=== PATIENT | female | born 1950 | race Caucasian/White ===

== ENCOUNTER 2021-10-17 12:15 | Emergency (ER) | payer MEDICARE, MEDICAID ==
[~2021-10-17] VITALS: Ht 154.9 cm; Wt 104.5 kg
[2021-10-17] MEDS ORDERED: pantoprazole 40MG/NS 100ML BAG 100 ML IV STA (14:53)
[2021-10-17] MEDS ORDERED: LIDOcaine Viscous 15ml cup MM ONE (14:55)
[2021-10-17] MEDS ORDERED: morphine 2 MG/ML inj. syringe IV PRN (14:55)
[2021-10-17] MEDS ORDERED: ondansetron/PF 4mg/2ml inj IV ONE (14:55)
[2021-10-17] MEDS ORDERED: mag hydrox/Alum hydrox/simeth 30ml oral suspension PO ONE (14:55)
[2021-10-17] MEDS ORDERED: normal saline 1000ML IV soln IVB ONE (14:55)
[2021-10-17 15:26] LABS: BASOPHILS % (AUTO) 0.2 % (0-1); EOSINOPHILS # (AUTO) 0.2 X10'3 (0-0.9); EOSINOPHILS % (AUTO) 1.7 % (0-6); HEMATOCRIT 42.6 % (35.0-45.0); HEMOGLOBIN 13.6 g/dl (12.0-16.0); LYMPHOCYTES # (AUTO) 2.4 X10'3 (1.1-4.8); LYMPHOCYTES % (AUTO) 24.9 % (21-51); MEAN CORPUSCULAR HEMOGLOBIN 30.5 PG (27.0-31.0); MEAN CORPUSCULAR HGB CONC 31.9 g/dL (33.0-36.5); MEAN CORPUSCULAR VOLUME 95.7 FL (78-98); MEAN PLATELET VOLUME 7.6 FL (7.4-10.4); MONOCYTES # (AUTO) 0.6 X10'3 (0-0.9); MONOCYTES % (AUTO) 6.4 % (2-12); NEUTROPHILS # (AUTO) 6.3 X10'3 (1.8-7.7); NEUTROPHILS % (AUTO) 66.8 % (42-75); PLATELET COUNT 207 X10'3 (140-440); RED BLOOD COUNT 4.45 X10'6 (4.20-5.60); RED CELL DISTRIBUTION WIDTH 14.6 % (11.5-14.5); WHITE BLOOD COUNT 9.5 X10'3 (4.5-11.0)
[2021-10-17] MEDS: diatr meglu/diatrizoate 30ml oral sol.-(3 dose) bottle PO SCH ×2 (15:49→16:54)
[2021-10-17 16:06] LABS: ALANINE AMINOTRANSFERASE 18 U/L (12-78); ALBUMIN 3.4 G/DL (3.4-5.0); ALBUMIN/GLOBULIN RATIO 1.3 (1.1-1.5); ALKALINE PHOSPHATASE 65 IU/L (46-116); ANION GAP 9 (8-16); ASPARTATE AMINO TRANSFERASE 21 U/L (10-37); BILIRUBIN,TOTAL 0.5 MG/DL (0.1-1.0); BLOOD UREA NITROGEN 20 MG/DL (7-18); BUN/CREATININE RATIO 17.5 (6.6-38.0); CALCIUM 8.5 MG/DL (8.5-10.1); CHLORIDE 109 MMOL/L (99-107); CREATININE 1.14 MG/DL (0.40-0.90); GLUCOSE 99 MG/DL (70-104); LIPASE 68 U/L (73-393); POTASSIUM 3.8 MMOL/L (3.5-5.1); SODIUM 147 MMOL/L (135-145); TOTAL CARBON DIOXIDE 29.5 MMOL/L (24-32); TOTAL PROTEIN 6.1 G/DL (6.4-8.2); eGFR 47 ML/MIN
[2021-10-17] MEDS ORDERED: MESSAGE TO NURSING PO NR (18:05)
[2021-10-17 18:38] LABS: CLARITY,URINE CLOUDY (Clear); COLOR,URINE YELLOW (Yellow); GLUCOSE, URINE NEGATIVE (Neg); KETONES,URINE >=80 mg/dl (Neg); LEUKOCYTE ESTERASE ,URINE NEGATIVE (Neg); NITRITES, URINE POSITIVE (Neg); OCCULT BLOOD,URINE TRACE-INTACT (Neg); PH,URINE 6.5 (4.8-8.0); PROTEIN,URINE TRACE mg/dl (Neg); UROBILINOGEN,URINE 0.2 E.U/dL (0.2-1.0)
[2021-10-17 18:54] LABS: UA COLLECTION TYPE NON-SPECIFIED
[2021-10-17 18:58] LABS: AMORPHOUS PHOSPHATES 2+; BACTERIA,URINE 2+ /HPF (Neg); COARSE GRANULAR CAST 0-3 /LPF (NEGATIVE); MUCUS STRANDS MODERATE /LPF (Neg); RBC,URINE 0-2 /HPF (0-2); SQUAMOUS EPITHELIAL CELL,UR FEW /LPF (FEW); TRANSITIONAL EPI CELLS,URINE FEW /HPF
[2021-10-17] MEDS ORDERED: ACET650T58 PO (19:02)
[2021-10-17] MEDS ORDERED: morphine 2 MG/ML inj. syringe IV ONE (19:20)
[2021-10-17 19:49] VITALS: BP 141/87
--- NOTE | 2021-10-21 10:55 | NUR ---
PT CALLED REGARDING LAB RESULTS FOR VISIT ON 10/17, NO ANSWER, MSG LEFT TO CALL BACK.
== END 2021-10-17 19:50 | disposition home or self-care (01) ==
LOC: ER 12:15
DX: N83.9 Noninflammatory disorder of ovary, fallopian tube and broad ligament, unspecified (principal); E86.0 Dehydration; Z88.8 Allergy status to other drugs, medicaments and biological substances; Z88.5 Allergy status to narcotic agent; Z79.899 Other long term (current) drug therapy
CPT/HCPCS: 36415; 74177; 80053; 81001; 83690; 85025; 86885; 86900; 86901; 87077; 87088; 87186; 96365; 96375; 96376; 99284; C9113; J2270; J2405; J7030; Q9963

== ENCOUNTER 2021-10-19 12:26 | Emergency (ER) | payer MEDICARE, MEDICAID ==
[~2021-10-19] VITALS: Ht 167.6 cm; Wt 106.8 kg
[~2021-10-19 12:26] MED LIST: ACET650T58 PO
[2021-10-19 14:06] LABS: BASOPHILS % (AUTO) 0.2 % (0-1); EOSINOPHILS # (AUTO) 0.2 X10'3 (0-0.9); EOSINOPHILS % (AUTO) 2.6 % (0-6); HEMATOCRIT 37.6 % (35.0-45.0); HEMOGLOBIN 12.5 g/dl (12.0-16.0); LYMPHOCYTES # (AUTO) 0.7 X10'3 (1.1-4.8); LYMPHOCYTES % (AUTO) 9.7 % (21-51); MEAN CORPUSCULAR HEMOGLOBIN 30.8 PG (27.0-31.0); MEAN CORPUSCULAR HGB CONC 33.2 g/dL (33.0-36.5); MEAN CORPUSCULAR VOLUME 92.6 FL (78-98); MEAN PLATELET VOLUME 7.8 FL (7.4-10.4); MONOCYTES # (AUTO) 0.5 X10'3 (0-0.9); MONOCYTES % (AUTO) 6.7 % (2-12); NEUTROPHILS # (AUTO) 6.2 X10'3 (1.8-7.7); NEUTROPHILS % (AUTO) 80.8 % (42-75); PLATELET COUNT 184 X10'3 (140-440); RED BLOOD COUNT 4.06 X10'6 (4.20-5.60); RED CELL DISTRIBUTION WIDTH 13.8 % (11.5-14.5); WHITE BLOOD COUNT 7.7 X10'3 (4.5-11.0)
--- NOTE | 2021-10-19 14:28 | NUR ---
Pt was straight cath for urine collection.
[2021-10-19 14:31] LABS: ALANINE AMINOTRANSFERASE 97 U/L (12-78); ALBUMIN 2.9 G/DL (3.4-5.0); ALKALINE PHOSPHATASE 100 IU/L (46-116); ANION GAP 9 (8-16); ASPARTATE AMINO TRANSFERASE 70 U/L (10-37); BILIRUBIN,TOTAL 0.6 MG/DL (0.1-1.0); BLOOD UREA NITROGEN 28 MG/DL (7-18); BUN/CREATININE RATIO 16.1 (6.6-38.0); CALCIUM 8.7 MG/DL (8.5-10.1); CHLORIDE 108 MMOL/L (99-107); CREATININE 1.74 MG/DL (0.40-0.90); GLUCOSE 116 MG/DL (70-104); POTASSIUM 3.6 MMOL/L (3.5-5.1); SODIUM 144 MMOL/L (135-145); TOTAL CARBON DIOXIDE 27.1 MMOL/L (24-32); TOTAL PROTEIN 5.8 G/DL (6.4-8.2); eGFR 29 ML/MIN
[2021-10-19] MEDS ORDERED: CefTRIAXone 2gm/D5W 50ml BAG 50 ML IV ONE (14:40)
[2021-10-19] MEDS ORDERED: normal saline 1000ML IV soln IV ONE (14:40)
[2021-10-19 14:44] LABS: CLARITY,URINE SLIGHTLY CLOUDY (Clear); COLOR,URINE YELLOW (Yellow); GLUCOSE, URINE NEGATIVE (Neg); KETONES,URINE TRACE mg/dl (Neg); LEUKOCYTE ESTERASE ,URINE TRACE (Neg); NITRITES, URINE POSITIVE (Neg); OCCULT BLOOD,URINE NEGATIVE (Neg); PH,URINE 5.5 (4.8-8.0); PROTEIN,URINE NEGATIVE (Neg); UROBILINOGEN,URINE 0.2 E.U/dL (0.2-1.0)
[2021-10-19 14:55] LABS: UA COLLECTION TYPE STRAIGHT CATH
[2021-10-19 14:57] LABS: BACTERIA,URINE 4+ /HPF (Neg); RBC,URINE NONE SEEN /HPF (0-2)
[2021-10-19 14:58] LABS: HYALINE CASTS 0-3 /LPF (NEGATIVE); MUCUS STRANDS NONE SEEN /LPF (Neg); SQUAMOUS EPITHELIAL CELL,UR FEW /LPF (FEW)
[2021-10-19] MEDS ORDERED: CEPH250T PO (16:29)
[2021-10-19 17:44] VITALS: BP 150/71
== END 2021-10-19 18:18 | disposition home or self-care (01) ==
LOC: ER 12:26
DX: S80.212A Abrasion, left knee, initial encounter (principal); S80.211A Abrasion, right knee, initial encounter; N39.0 Urinary tract infection, site not specified; N28.9 Disorder of kidney and ureter, unspecified; R53.1 Weakness; R19.7 Diarrhea, unspecified; R10.84 Generalized abdominal pain; M54.9 Dorsalgia, unspecified; M25.559 Pain in unspecified hip; Z88.8 Allergy status to other drugs, medicaments and biological substances; Z79.2 Long term (current) use of antibiotics; W19.XXXA Unspecified fall, initial encounter; Y93.89 Activity, other specified; Y92.89 Other specified places as the place of occurrence of the external cause; Y99.8 Other external cause status
CPT/HCPCS: 36415; 80053; 81001; 85025; 87088; 87186; 96365; 96366; 99284; J0696; J7030; 87077

== ENCOUNTER 2021-10-22 12:13 | Emergency (ER) | payer MEDICARE, MEDICAID ==
[~2021-10-22] VITALS: Ht 157.5 cm; Wt 104.1 kg
[~2021-10-22 12:13] MED LIST changes: +CEPH250T PO
[2021-10-22] MEDS: normal saline 1000ML IV soln IVB ONE (12:47)
[2021-10-22] MEDS: dexamethasone sod phosphate 10mg/ml inj IV STA (12:54)
[2021-10-22 13:18] LABS: BASOPHILS % (AUTO) 0.5 % (0-1); EOSINOPHILS % (AUTO) 0.7 % (0-6); HEMATOCRIT 40.2 % (35.0-45.0); HEMOGLOBIN 13.3 g/dl (12.0-16.0); LYMPHOCYTES % (AUTO) 18.6 % (21-51); MEAN CORPUSCULAR HEMOGLOBIN 30.5 PG (27.0-31.0); MEAN CORPUSCULAR VOLUME 92.4 FL (78-98); MEAN PLATELET VOLUME 8.5 FL (7.4-10.4); MONOCYTES # (AUTO) 0.4 X10'3 (0-0.9); NEUTROPHILS # (AUTO) 3.7 X10'3 (1.8-7.7); NEUTROPHILS % (AUTO) 73.2 % (42-75); PLATELET COUNT 232 X10'3 (140-440); RED BLOOD COUNT 4.35 X10'6 (4.20-5.60); WHITE BLOOD COUNT 5.1 X10'3 (4.5-11.0)
[2021-10-22 13:33] LABS: ALANINE AMINOTRANSFERASE 62 U/L (12-78); ALBUMIN 3.2 G/DL (3.4-5.0); ALKALINE PHOSPHATASE 103 IU/L (46-116); ANION GAP 8 (8-16); ASPARTATE AMINO TRANSFERASE 44 U/L (10-37); BILIRUBIN,TOTAL 0.4 MG/DL (0.1-1.0); BLOOD UREA NITROGEN 15 MG/DL (7-18); CALCIUM 8.5 MG/DL (8.5-10.1); CHLORIDE 109 MMOL/L (99-107); CREATININE 1.07 MG/DL (0.40-0.90); GLUCOSE 226 MG/DL (70-104); SODIUM 144 MMOL/L (135-145); TOTAL CARBON DIOXIDE 26.8 MMOL/L (24-32); TOTAL PROTEIN 6.3 G/DL (6.4-8.2); eGFR 50 ML/MIN
[2021-10-22 13:36] LABS: POTASSIUM 2.9 MMOL/L (3.5-5.1)
[2021-10-22] MEDS: potassium Cl 20 mEq SR tablet PO STA (15:16)
[2021-10-22] MEDS: potassium CL 10mEq/100ml bag 100 ML IV ONE (15:17)
[2021-10-22 15:42] LABS: CLARITY,URINE SLIGHTLY CLOUDY (Clear); COLOR,URINE YELLOW (Yellow); GLUCOSE, URINE NEGATIVE (Neg); KETONES,URINE 15 mg/dl (Neg); LEUKOCYTE ESTERASE ,URINE NEGATIVE (Neg); NITRITES, URINE NEGATIVE (Neg); OCCULT BLOOD,URINE NEGATIVE (Neg); PH,URINE 5.5 (4.8-8.0); PROTEIN,URINE NEGATIVE (Neg); UROBILINOGEN,URINE 0.2 E.U/dL (0.2-1.0)
[2021-10-22 15:44] LABS: UA COLLECTION TYPE STRAIGHT CATH
[2021-10-22 15:49] LABS: BACTERIA,URINE FEW /HPF (Neg); RBC,URINE 0-2 /HPF (0-2); SQUAMOUS EPITHELIAL CELL,UR FEW /LPF (FEW); WBC,URINE 0-4 /HPF (0-4)
[2021-10-22] MEDS ORDERED: POTA-207 PO (16:00)
[2021-10-22 17:32] VITALS: BP 158/90
== END 2021-10-22 17:38 | disposition home or self-care (01) ==
LOC: ER 12:15
DX: E11.649 Type 2 diabetes mellitus with hypoglycemia without coma (principal); Z20.822 Contact with and (suspected) exposure to COVID-19; E87.6 Hypokalemia; E86.0 Dehydration; R41.82 Altered mental status, unspecified; Z88.8 Allergy status to other drugs, medicaments and biological substances; Z79.899 Other long term (current) drug therapy; Z79.2 Long term (current) use of antibiotics; Z72.89 Other problems related to lifestyle
CPT/HCPCS: 36415; 80053; 81001; 82948; 85025; 87635; 96365; 96366; 96375; 99285; C9803; J1100; J3480; J7030; 96361; A4353

== ENCOUNTER 2024-12-16 12:59 | Emergency (ER) | payer MEDICARE, MEDICAID ==
[~2024-12-16] VITALS: Ht 172.7 cm; Wt 81.8 kg
[~2024-12-16 12:59] MED LIST changes: -ACET650T58 PO; -CEPH250T PO; +CITA40TA17 PO; +CLON-369 PO; +LACT1CAP26 PO; +LEVO125T8 PO; +LISI5TAB22 PO; +LOP12.5T PO; +METF-438 PO; +OMEP40CA21 PO; +SIMV-42 PO; +TIOT4MIS2 INH; +TRAZ150T78 PO; +VANC5VIA PO
[2024-12-16 13:11] VITALS: BP 145/64; PULSE 90; TEMP 97.6; O2SAT 98
--- NOTE | 2024-12-16 14:03 | RADIOLOGY REPORT ---
CLINICAL INDICATION: KNEE PAIN,RIGHT TECHNIQUE: DI KNEE, COMP 4 VW MIN Comparison: None FINDINGS/IMPRESSION: : There is no evidence of acute fracture or dislocation. Small joint effusion. Osteopenia.
--- NOTE | 2024-12-16 14:03 | RADIOLOGY REPORT ---
CLINICAL INDICATION: ANKLE PAIN,RIGHT TECHNIQUE: DI ANKLE, COMPLETE(3VW MIN) Comparison: None FINDINGS/IMPRESSION: : There is no evidence of acute fracture or dislocation. Soft tissues are unremarkable. Osteopenia. Small joint effusion.
--- NOTE | 2024-12-16 15:40 | Physician Documentation ---
History of Present Illness ~ Chief Complaint: Leg Pain Stated Complaint: R LEG PAIN Time Seen by MD: 15:35 Primary Medical Doctor: Nate Jensen NP HPI Patient states he fell from ground level couple of weeks ago and states that he is still having pain in his right lower extremity after taking it easy further couple of weeks since his fall. Patient denies any numbness or tingling of his extremities and he has no other concern or complaint at this time. Tetanus witin 5 years: No Medication Reconciliation Allergies: Coded Allergies: diazepam (Verified Allergy, Unknown, 12/16/24) hydrocodone (Verified Allergy, Unknown, 12/16/24) metoclopramide (Verified Allergy, Unknown, 12/16/24) Scheduled Citalopram Hydrobromide (Citalopram HBr), 1 TAB PO DAILY, (Reported) Lactobacillus Rhamnosus (Culturelle), 10,000 MMU PO BKF Levothyroxine Sodium (Levothyroxine Sodium), 1 TAB PO DAILY, (Reported) Lisinopril (Lisinopril), 1 TAB PO DAILY, (Reported) Metformin HCl (Metformin HCl), 1 TAB PO BID, (Reported) Metoprolol Tartrate (Lopressor tablet), 12.5 MG PO BID Omeprazole (Prilosec), 1 CAP PO QAM, (Reported) Simvastatin* (Zocor*), 1 TAB PO DAILY, (Reported) Tiotropium [place] (Spiriva Respimat), 2 PUFFS INH DAILY, (Reported) Trazodone Hcl (Trazodone Hcl), 2 TAB PO HS, (Reported) Vancomycin HCl (Vancomycin HCl), 125 MG PO Q6H Scheduled PRN Clonazepam (Clonazepam), 1 TAB PO QID PRN for PRN, (Reported) Past Medical History Past Medical History: Diabetes Past Surgical History: noncontributory Alcohol Use: Other Drug Use: none Lives with: Alone Lives In: Home Review of Systems Constitutional: Denies: chills, fever, weakness Eyes: Denies: pain, blurred vision ENT: Denies: ear pain, nose pain, throat pain, mouth pain Respiratory: Denies: cough, shortness of breath Cardiovascular: Denies: chest pain, palpitations Gastrointestinal: Denies: abdominal pain, nausea, vomiting Genitourinary: Denies: burning, dysuria Female Genitalia: Denies: vaginal discharge, pelvic pain Neurological: Denies: headache, dizziness Musculoskeletal: Denies: pain, swelling Integumentary: Denies: rash, lesions Allergic/Immunologic: Denies: hives, itching Hematologic/Lymphatic: Denies: no symptoms reported Psychiatric: Denies: depression, anxiety Physical Exam Vital Signs: Temperature: 97.6, Source: Oral, Heart Rate: 90, Respiratory Rate: 18, BP: 145/64, Pulse Oximetry: 98, Weight: 81.800 Oxygen Flow Rate: 0 Physical Exam General: Awake and Alert, no acute distress. HEENT: Conjunctiva pink, Sclera clear, Mucus Membranes moist. Neck: Supple without masses and tenderness. Resp: Unlabored. Lungs clear to auscultation bilaterally. Heart: Regular Rate and rhythm, normal S1 and S2 without murmur, rub or gallop. Musculoskeletal: Patient on exam has very minimal swelling of right lower extremity with mild decreased range of motion of the right knee and ankle without any warmth or erythema. Patient is neurovascularly intact distally. Motor function strength intact distally. Extremities: No cyanosis,clubbing or edema. Skin: Warm and Dry. Progress Results/Orders Results/Orders Orders - EZEKIEL SKINNER PAC Knee, Complete (12/16/24 13:47) Ankle, Complete(3vw Min) (12/16/24 13:47) Oxycodone/Acetaminophen Tablet (Percocet (12/16/24 16:37) Completed Orders - EZEKIEL SKINNER PAC Knee, Complete (12/16/24 13:47) Ankle, Complete(3vw Min) (12/16/24 13:47) Vital Signs 12/16/24 13:11 Temp 97.6 Pulse 90 Resp 18 B/P (MAP) 145/64 Pulse Ox 98 O2 Flow Rate 0 Medical Decision Making Findings Patient states he fell from ground level couple of weeks ago and states that he is still having pain in his right lower extremity after taking it easy further couple of weeks since his fall. Patient denies any numbness or tingling of his extremities and he has no other concern or complaint at this time. Patient did have x-rays taken of right knee and ankle that showed no sign of acute fracture injury. Patient will follow up with Orthopedics for physical therapy by referral from visit with primary care as soon as possible or in 1-2 weeks if no better. Return to ED with any worsening, concerning or changing symptoms. Was given a dose of Percocet five/325 mg, one tab by mouth in the ED today and short prescription sent to patient's pharmacy. Departure Disposition: HOME / SELF CARE / HOMELESS Impression: Primary Impression: Lower extremity sprain Additional Impression: Knee pain Qualified Codes: M25.561 - Pain in right knee Condition: Stable Discharge Instructions: Muscle Strain, [id number] Additional Instructions: Patient did have x-rays taken of right knee and ankle that showed no sign of acute fracture injury. Patient will follow up with Orthopedics for physical therapy by referral from visit with primary care as soon as possible or in 1-2 weeks if no better. Return to ED with any worsening, concerning or changing symptoms. Patient unfortunately left the ED prior to discussion or review with the patient of his x-rays or prescribing any medication or further eval and treatment. Referrals: NO PRIMARY CARE PROVIDER (PCP) Prescriptions Oxycodone HCl/Acetaminophen (Percocet 5-325 mg Tablet) 5 Mg-325 Mg Tablet 1 TAB PO Q12H PRN PRN for pain for 5 Days, #10 TAB 0 Refills Prov: EZEKIEL SKINNER 12/16/24 Signature Scribe Signature: No scribe Attestation: No scribe EZEKIEL SKINNER Dec 16, 2024 15:40
[2024-12-16] MEDS ORDERED: OXYC-145 PO (16:46)
[2024-12-16 16:54] VITALS: RESP 18
[2024-12-16] MEDS: oxyCODONE/APAP 5-325mg tablet PO STA (16:54)
== END 2024-12-16 16:57 | disposition home or self-care (01) ==
LOC: ER 13:01
DX: S83.8X1A Sprain of other specified parts of right knee, initial encounter (principal); E11.9 Type 2 diabetes mellitus without complications; Z88.5 Allergy status to narcotic agent; Z88.8 Allergy status to other drugs, medicaments and biological substances; Z79.899 Other long term (current) drug therapy; Z79.84 Long term (current) use of oral hypoglycemic drugs; W18.30XA Fall on same level, unspecified, initial encounter; Y93.89 Activity, other specified; Y92.89 Other specified places as the place of occurrence of the external cause; Y99.8 Other external cause status
CPT/HCPCS: 73564; 73610; 99284

== ENCOUNTER 2024-12-22 12:45 | Inpatient (IN) | payer MEDICARE, MEDICAID ==
[~2024-12-22] VITALS: Ht 157.5 cm; Wt 97.7 kg
[~2024-12-22 12:45] MED LIST changes: +OXYC-145 PO
[2024-12-22 14:22] LABS: MEAN PLATELET VOLUME 6.8 FL (7.4-10.4); RED CELL DISTRIBUTION WIDTH 14.4 % (11.5-14.5)
[2024-12-22 14:37] LABS: CREATININE 2.14 MG/DL (0.40-0.90); TOTAL CARBON DIOXIDE 25.1 MMOL/L (24-32); eCRCL 18 ML/MIN; eGFR 22 ML/MIN
[2024-12-22 18:07] LABS: C DIFF ANTIGEN POSITIVE (NEGATIVE); C DIFF SPECIMEN=DIARRHEA? ACCEPTABLE; C DIFFICILE TOXINS A&B POSITIVE (Neg)
--- NOTE | 2024-12-22 19:58 | Physician Documentation ---
History of Present Illness ~ Chief Complaint: General Stated Complaint: WEAKNESS Time Seen by MD: 19:48 Primary Medical Doctor: Nate Jensen NP Mode of Arrival: EMS HPI 74-year-old female presents to the ED with a history of four days of profuse diarrhea. He is able to hold food down denies any vomiting parents she also denies any fevers. States she feels weak and has general malaise. deniest headaches. Medication Reconciliation Allergies: Coded Allergies: diazepam (Verified Allergy, Unknown, 12/22/24) hydrocodone (Verified Allergy, Unknown, 12/22/24) metoclopramide (Verified Allergy, Unknown, 12/22/24) Scheduled Citalopram Hydrobromide (Citalopram HBr), 1 TAB PO DAILY, (Reported) Lactobacillus Rhamnosus (Culturelle), 10,000 MMU PO BKF Levothyroxine Sodium (Levothyroxine Sodium), 1 TAB PO DAILY, (Reported) Lisinopril (Lisinopril), 1 TAB PO DAILY, (Reported) Metformin HCl (Metformin HCl), 1 TAB PO BID, (Reported) Metoprolol Tartrate (Lopressor tablet), 12.5 MG PO BID Omeprazole (Prilosec), 1 CAP PO QAM, (Reported) Simvastatin* (Zocor*), 1 TAB PO DAILY, (Reported) Tiotropium [place] (Spiriva Respimat), 2 PUFFS INH DAILY, (Reported) Trazodone Hcl (Trazodone Hcl), 2 TAB PO HS, (Reported) Vancomycin HCl (Vancomycin HCl), 125 MG PO Q6H Scheduled PRN Clonazepam (Clonazepam), 1 TAB PO QID PRN for PRN, (Reported) Oxycodone HCl/Acetaminophen (Percocet 5-325 mg Tablet), 1 TAB PO Q12H PRN PRN for pain Past Medical History Alcohol Use: Other Drug Use: none Review of Systems All Other Systems at this time: Reviewed and Negative ROS As stated above in the HPI, otherwise all systems are reviewed and negative. Physical Exam Vital Signs: Temperature: 97.0, Heart Rate: 94, Respiratory Rate: 18, BP: 134/74, Pulse Oximetry: 94, Weight: 97.730 Oxygen Flow Rate: 0 Physical Exam General: Alert, no apparent distress. Cardiovascular: Regular rate and rhythm, no murmurs. Gastrointestinal: Soft, nontender, nondistended. Bowels sounds present. Extremities: Normal range of motion, no deformity. Neurologic: Oriented x4. Psychiatric: Normal mood and affect. Skin: Normal color, warm and dry. No edema, no ecchymosis. Progress Results/Orders Results/Orders Orders - SIM VALDOVINOS DENTAL TECHNICIAN INSTRUCTOR Page Hospitalist (12/22/24 ) Culture Blood (12/22/24 19:54) Urinalysis, Cult If Indicated (12/22/24 19:54) Monitor (12/22/24 19:54) Saline Lock (12/22/24 19:54) Lacticsepsis (12/22/24 19:54) Page Hospitalist (12/22/24 ) Completed Orders - SIM VALDOVINOS DENTAL TECHNICIAN INSTRUCTOR [place] (12/22/24 19:52) Cbc/Diff (12/22/24 19:54) Procalcitonin (12/22/24 19:54) BMP (12/22/24 19:54) Normal Saline 1000ml (0.9% Sodium Chlori (12/22/24 19:55) Vancomycin*Pharmacy To Dose* (Vancomycin (12/22/24 19:55) Vancomycin Inj. (Vancomycin Iv) (12/22/24 20:21) Medications Received in ER Medications (Trade) Dose Ordered Sig/Nik Route PRN Reason Start Time Stop Time Status Last Admin Dose Admin (0.9% sodium chloride (NS) 1000ml IV soln) 2,000 ml ONCE ONCE IVB 12/22/24 19:55 12/22/24 19:57 DC 12/22/24 21:57 2,000 ML Sodium Chloride 1,000 ml @ 100 mls/hr Q10H IV 12/22/24 21:00 12/22/24 21:57 100 MLS/HR Vital Signs 12/22/24 12/22/24 12/22/24 12/22/24 12:57 16:36 17:29 18:30 Temp 97.0 Pulse 100 97 94 Resp 18 16 18 B/P (MAP) 119/69 120/69 (86) 134/74 (94) Pulse Ox 99 94 94 O2 Flow Rate 0 0 0 Laboratory Tests Test 12/22/24 14:10 12/22/24 17:10 12/22/24 20:37 White Blood Count 7.3 8.1 Red Blood Count 4.09 L 4.15 L Hemoglobin 12.4 12.7 Hematocrit 37.7 37.9 Mean Corpuscular Volume 92.2 91.3 Mean Corpuscular Hemoglobin 30.4 30.6 Mean Corpuscular Hemoglobin Concent 33.0 33.5 Red Cell Distribution Width 14.4 14.3 Platelet Count 213 230 Mean Platelet Volume 6.8 L 7.3 L Neutrophils (%) (Auto) 74.8 68.2 Lymphocytes (%) (Auto) 13.9 L 18.9 L Monocytes (%) (Auto) 9.6 11.1 Eosinophils (%) (Auto) 1.1 1.5 Basophils (%) (Auto) 0.6 0.3 Neutrophils # (Auto) 5.5 5.5 Lymphocytes # (Auto) 1.0 L 1.5 Monocytes # (Auto) 0.7 0.9 Eosinophils # (Auto) 0.1 0.1 Basophils # (Auto) 0.0 0.0 CBC Comment Sodium Level 141 140 Potassium Level 4.0 4.3 Chloride Level 106 107 Carbon Dioxide Level 25.1 22.9 L Anion Gap 10 10 Blood Urea Nitrogen 37 H 36 H Creatinine 2.14 H 2.08 H Estimated GFR/1.73 m2 22 23 BUN/Creatinine Ratio 17.3 17.3 Glucose Level 241 H 249 H Hemoglobin A1c 6.9 H Calcium Level 7.7 L 8.3 L Total Bilirubin 0.5 Aspartate Amino Transf (AST/SGOT) 20 Alanine Aminotransferase (ALT/SGPT) 33 Alkaline Phosphatase 109 Total Protein 6.0 L Albumin 2.5 L 2.6 L Globulin 3.5 Albumin/Globulin Ratio 0.7 L Chemistry Comments Clostridium Difficile Toxin A & B Positive H Clostridium difficile Antigen Positive H Lactic Acid Level 2.9 H Procalcitonin 0.18 Microbiology Date/Time Source Procedure Growth Status 12/22/24 20:37 Blood Arm Right Blood Culture - Preliminary NEGATIVE (LESS THAN 24 HOURS) Resulted Medical Decision Making Findings This 74-year-old presented with a complaint of four days of diarrhea. Although her presentation is reassuring, she tested positive for Clostridium difficile. Going to started on vancomycin give her a fluid bolus and request hospital admission Lytes are reassuring at this time Differential Dx:Considerations: Include: Dehydration, Diarrhea-bacterial, Diarrhea-parasitic, Diarrhea-viral, Gastroenteritis, Hernia, Hirschsprung disease, Impaction, Malabsorption, Malrotation, Ulcerative colitis, Other Departure Disposition: 09 ADMITTED INPATIENT Impression: Primary Impression: C. difficile diarrhea Referrals: NO PRIMARY CARE PROVIDER (PCP) Signature Scribe Signature: e Attestation: Scribed for Sim Valdovinos Chute Loader by Sim Maldonado NP . 12/22/24 23:12 SIM VALDOVINOS DENTAL TECHNICIAN INSTRUCTOR Dec 22, 2024 19:58
[2024-12-22] MEDS ORDERED: vancomycin inj. 750 MG in normal saline 250ml IV soln 250 ML IV SCH (20:21)
[2024-12-22] MEDS ORDERED: ondansetron/PF 4mg/2ml inj IV PRN (21:00)
[2024-12-22] MEDS ORDERED: potassium Cl 40MEQ/1/2NS 520ml 520 ML IV PRN (21:00)
[2024-12-22] MEDS ORDERED: potassium Cl 20 mEq SR tablet PO PRN (21:00)
[2024-12-22 21:06] LABS: CREATININE 2.08 MG/DL (0.40-0.90); MEAN PLATELET VOLUME 7.3 FL (7.4-10.4); RED CELL DISTRIBUTION WIDTH 14.3 % (11.5-14.5); TOTAL CARBON DIOXIDE 22.9 MMOL/L (24-32); eCRCL 18 ML/MIN; eGFR 23 ML/MIN
--- NOTE | 2024-12-22 21:54 | RADIOLOGY REPORT ---
CLINICAL HISTORY: rule out megacolon TECHNIQUE: CT of the abdomen and pelvis was performed without IV contrast. This exam was performed according to our departmental dose optimization program. Up-to-date CT equipment and radiation dose reduction techniques are utilized as appropriate. CTDI 32.8 DLP 1256.3 COMPARISON: CT ABDOMEN PELVIS on DOS: 11/18/21, ULTRASOUND PELVIS on DOS: 11/18/21, CT ABDOMEN PELVIS on DOS: 10/17/21 FINDINGS: Abdomen/Pelvis: The pancreas, adrenal glands, and liver are unremarkable. The gallbladder is absent. There is a 2 mm bladder stone on the left. Uterine myometrial masses most likely represent fibroids. There are numerous bilateral nonobstructing renal calculi measuring up to 7 mm on the left. The common duct is dilated, measuring 17 mm. Punctate splenic calcifications are most compatible prior granulomatous disease. The abdominal aorta is normal in course and caliber. There are moderate aortic atherosclerotic calcifications. There is no free intraperitoneal air or fluid. There is no enlarged abdominal pelvic lymph node. There is no bowel wall thickening or dilatation. There has been Terrence-en-Y gastric bypass surgery. Other: The imaged lower thorax demonstrates a small hiatal hernia. There is mild sigmoid colon diverticulosis. No acute osseous abnormality is evident. Impression: No acute noncontrast CT abnormality in the abdomen or pelvis. 2 mm left-sided bladder stone. Numerous bilateral nonobstructing renal calculi. 17 mm common duct, dilated for post cholecystectomy state. Please correlate with laboratory values and pursue further workup if warranted. Terrence-en-Y gastric bypass surgery. Small hiatal hernia. Uterine fibroids. Mild sigmoid colon diverticulosis.
[2024-12-22] MEDS: normal saline 1000ml 1,000 ML IV SCH (21:57)
[2024-12-22] MEDS: vancomycin 125 MG/5 ML UD oral SOLN.RECON 5mL oral syringe (FIRVANQ) PO SCH (21:57)
[2024-12-22] MEDS: normal saline 1000ML IV soln IVB ONE (21:57)
--- NOTE | 2024-12-22 22:12 | ELECTROCARDIOGRAPH REPORT ---
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
--- NOTE | 2024-12-22 22:20 | RADIOLOGY REPORT ---
CHEST RADIOGRAPH Indication: rule out aspiration Technique: 1 view Comparison: CHEST,SINGLE VIEW on DOS: 11/18/21 FINDINGS: Lines and Tubes: None. Lungs/Pleura: No focal consolidation, pleural effusion or pneumothorax. Cardiomediastinum: Unremarkable. Other: No acute osseous abnormality. IMPRESSION: 1. No acute cardiopulmonary abnormality.
[2024-12-22 23:10] LABS: LEUKOCYTE ESTERASE ,URINE MODERATE (Neg); NITRITES, URINE POSITIVE (Neg); OCCULT BLOOD,URINE LARGE (Neg)
[2024-12-22 23:11] LABS: UA COLLECTION TYPE NON-SPECIFIED
[2024-12-22 23:15] LABS: SQUAMOUS EPITHELIAL CELL,UR NONE SEEN /LPF (FEW)
--- NOTE | 2024-12-22 23:42 | HISTORY AND PHYSICAL-Residence ---
History & Physical Providers to Resident Creating Document: DEBBIE KERN RES ~ History of Present Illness Primary Medical Doctor: Nate Jensen NP Reason for Admit\Complaint: Diarrhea History of Present Illness The 74-year-old female with a past medical history of diabetes mellitus, hypertension, GERD, hypothyroidism, anxiety disorder, C diff in 2021 presented to the ER with a chief concern of diarrhea for the last four days. She states that she is from home. Per nurse, she was told that she came from a rehab. Per the ER report, she came from an independent living facility. The patient is a poor historian and keeps saying ' why do you ask stupid questions, I do not want to answer and I do not remember'. Complains of loose stools-about 3-5 episodes per day for the last four days. Also complains of lower abdominal pain. Denies any nausea, vomiting, dysuria, chest pain, shortness of breath, dizziness, syncope. States that she uses diapers but also uses restroom. She is not able to provide clear history if she has any urinary or bowel incontinence. Denies any bright red blood in stool stated that the stool is dark brown in color. Stated that she uses a walker and also needs a person as she walks. She has a caregiver who comes daily but states that she is not providing good care. Is unsure what medications she takes at home. Does not remember her past medical conditions and surgical history. Stated that she had a colonoscopy in the past but does not remember the findings and also does not remember when it was done. Denies using any antibiotics or being in a rehab in the last six months. Is unsure when she was last admitted in a hospital. Allergies: Coded Allergies: diazepam (Verified Allergy, Unknown, 12/22/24) hydrocodone (Verified Allergy, Unknown, 12/22/24) metoclopramide (Verified Allergy, Unknown, 12/22/24) Home Medications Home Medications Active Percocet 5-325 mg Tablet (Oxycodone HCl/Acetaminophen) 5 Mg-325 Mg Tablet 1 Tab PO Q12H PRN PRN 5 Days Culturelle (Lactobacillus Rhamnosus) 1 Each Capsule 10,000 Mmu PO BKF Lopressor tablet (Metoprolol Tartrate) 25 Mg Tablet 12.5 Mg PO BID Hold for SBP below 100mm Hg Hold for Heart Rate below 60. Vancomycin HCl 5 Gm Vial 125 Mg PO Q6H 7 Days Reported Citalopram HBr (Citalopram Hydrobromide) 40 Mg Tablet 1 Tab PO DAILY Lisinopril 5 Mg Tablet 1 Tab PO DAILY Trazodone Hcl 150 Mg Tablet 2 Tab PO HS Zocor* (Simvastatin) 20 Mg Tablet 1 Tab PO DAILY Levothyroxine Sodium 125 Mcg Tablet 1 Tab PO DAILY Spiriva Respimat (Tiotropium [place]) 4 Gm Mist.inhal 2 Puffs INH DAILY Prilosec (Omeprazole) 40 Mg Capsule 1 Cap PO QAM Metformin HCl 1,000 Mg Tablet 1 Tab PO BID Clonazepam 0.5 Mg Tablet 1 Tab PO QID PRN Past Medical History Past Medical History Per previous records, Ovarian cyst, diabetes mellitus, hypertension, GERD, hypothyroidism, anxiety disorder, C diff in 2021 Past Surgical History Surgical History Comment Patient states that she does not remember. Per records, gastric sleeve surgery, tubal ligation, appendectomy, carpal tunnel surgery, cholecystectomy Past Social History Social History Comment Stated that she quit smoking about 20 years back. Smoked half pack of cigarettes for 10-15 years before that. Denied drinking alcohol or abusing any other recreational drugs ROS ROS Constitutional: No fever, chills, dizziness, weakness, weight gain or loss Eyes: No pain, erythema, discharge, blurring of vision ENT: No sore throat, epistaxis, tinnitus Cardiovascular: No chest pain, chest pressure, chest discomfort, palpitations, syncope, lower extremity edema, paroxysmal nocturnal dyspnea Respiratory: No shortness of breath, cough, hemoptysis Gastrointestinal: Diarrhea and abdominal pain present. Normal appetite. No nausea, vomiting, constipation, hematemesis, bloating, melena or fresh blood Genitourinary: No frequency, urgency, nocturia, hematuria or dysuria Musculoskeletal: No arthralgias or myalgias Integumentary: No change in skin, hair, nails. No swelling, bruising, abrasions Neurologic: No headache, neck pain, numbness or tingling of the extremities, weakness Psychiatric: No delusions, depression, loss of interest in normal activity or change in sleep pattern, hallucinations, suicidal ideations Endocrine: No fatigue, weakness, polydipsia, polyuria, change in appetite, heat or cold intolerance, sweating, dry skin Hematological: No bleeding, petechiae, bruising Allergies: No asthma or urticaria Exam Vitals: Vital Signs Date Time Temp Pulse Resp B/P (MAP) Pulse Ox O2 Delivery O2 Flow Rate FiO2 12/22/24 22:28 97.0 100 16 128/62 (84) 97 0 General: Alert and oriented x4 HEENT: Normocephalic and atraumatic. Pupils equal round reactive to light and accommodation. Extraocular movements intact. Oral and nasal mucosa moist Neck: Trachea is in midline. No masses or JVD Chest: Bilateral normal breath sounds. No crackles, rhonchi or wheezes Cardiovascular: Regular rate and rhythm. S1-S2 normal. No rubs or murmurs Abdomen: Soft and nondistended. Mild tenderness in the umbilical region, hypogastric region and left lumbar region. Normoactive bowel sounds Extremities: No cyanosis, clubbing or edema Central Nervous System: Bilateral upper extremity motor power-4/5, bilateral lower extremity motor power 3/5. Finger-nose test normal. CN II to XII grossly intact Skin: Warm and dry Diagnostic Data Last Recorded Lab Results: 12/22/24203612/22/242036 Advance Care Planning Advanced Care plannin - 30 Minutes Additional Plan Positive for C diff Lactic acidosis Not a recurrence within two months for the last one Last known positive C diff was in 2021 Vitals stable C diff toxin a and B positive, C diff antigen positive Started vancomycin p.o. 125 mg q.6h No elevated WBC, tachycardia or tachypnea Received 2 L normal saline bolus in the ER Started normal saline at 100 cc/hour Procalcitonin negative Recommend consulting ID in AM Urinary tract infection Urinalysis showed 30 protein, trace ketones, large occult blood, positive nitrite, moderate leukocyte esterase, 5-10 WBC, 4+ bacteria Blood cultures and urine cultures ordered Denies dysuria but has mild lower abdominal pain Avoiding IV antibiotics due to ongoing C diff Continue IV fluids and monitor symptoms Dependent living Needs a person's help to walk States that she has been unable to get good care from the caregiver Requested rn social work consult PT evaluation Possible RIGO on CKD stage IV Continue IV fluids Urine lytes ordered Bilateral numerous nonobstructing renal calculi 2 mm left-sided bladder stone Continue IV fluids Started tamsulosin 0.4 mg p.o. daily Diabetes mellitus HbA1c 6.9 Repeat blood sugar at 3:00 a.m. was around 187 Started hyperglycemic/hypoglycemic protocol with Lantus 18 units and low-dose lispro protocol Hypertension Well-controlled Unsure if patient takes medication at home Continue to monitor and start medication as needed Hypothyroidism TSH ordered Continue home medication after med reconciliation Anxiety disorder Continue home medication after med reconciliation Insomnia Continue home medication trazodone 300 mg p.o. HS # A lot of discrepancy in the medications reconciliation and the external med history. Please ask the nurse to reconcile medications again to avoid giving wrong medications and dosages to the patient Diet: 75 g carb controlled diet DVT prophylaxis: Heparin 5000 subcutaneous q.12h Debbie Kern MD Internal Medicine Resident, PGY 3 Attending Addendum Pt was seen and discussed with the team agree with assessment and plan as documented Date of Service: Dec 23, 2024 Billing Provider: BRIDGETTE HERMAN MD, MANOJNA RES Dec 22, 2024 23:42 BRIDGETTE HERMAN MD Dec 23, 2024 09:39
[2024-12-23 01:45] VITALS: BP 110/62; PULSE 97; RESP 16; TEMP 97; O2SAT 95
[2024-12-23] MEDS: vancomycin 125 MG/5 ML UD oral SOLN.RECON 5mL oral syringe (FIRVANQ) ONE (01:59)
[2024-12-23] MEDS ORDERED: glucagon, human recombinant 1mg kit SUBCUT PRN (02:35)
[2024-12-23] MEDS ORDERED: DEXTROSE 15 GM of carb/4 tabs (each vial/BOTTLE has 4 tablets) PO PRN ×2 (02:35)
[2024-12-23] MEDS ORDERED: dextrose 50%-water 50ml dispensing syringe IV PRN ×2 (02:35)
[2024-12-23 06:00] VITALS: BP 113/58; PULSE 105; RESP 16; TEMP 98; O2SAT 95
[2024-12-23 06:25] LABS: APTT 27 SECONDS (22-32); INR 1.1 INR
[2024-12-23 06:32] LABS: MEAN PLATELET VOLUME 7.5 FL (7.4-10.4); RED CELL DISTRIBUTION WIDTH 14.5 % (11.5-14.5)
[2024-12-23 06:38] LABS: CHOL/HDL RATIO 1.7 (0.00-4.99); CREATININE 1.67 MG/DL (0.40-0.90); LDL CHOLESTEROL 21 MG/DL (50-100); PHOSPHORUS 2.2 MG/DL (2.3-4.5); TOTAL CARBON DIOXIDE 21.0 MMOL/L (24-32); eCRCL 23 ML/MIN; eGFR 30 ML/MIN
[2024-12-23] MEDS: heparin, porcine 5000 units/ml vial SQ SCH (07:48)
[2024-12-23] MEDS: K and/or MAG REPLACEMENT MC SCH (08:00)
[2024-12-23] MEDS: INSULIN LISPRO 100 UNIT/ML INSULN.PEN MULTI-DOSE SQ SCH (08:07)
[2024-12-23] MEDS: magnesium Cl slow-release 64mg tablet PO PRN (08:11)
[2024-12-23 10:00] VITALS: BP 128/62; PULSE 90; RESP 20; TEMP 98.5; O2SAT 94
--- NOTE | 2024-12-23 11:38 | PROGRESS NOTE ---
Daily Progress Note Providers to CC ~ Antibiotic Timeout Antibiotic Ordered?: Yes Subjective Patient has no new complaints. Reports feeling better. Objective Vital Signs Date Time Temp Pulse Resp B/P (MAP) Pulse Ox O2 Delivery O2 Flow Rate FiO2 12/23/24 08:00 Room Air 12/23/24 06:00 98.0 105 16 113/58 (76) 95 12/23/24 00:48 0 Result Diagram: 12/23/2451712/23/24517 Awake cooperative in no acute distress HEENT normocephalic atraumatic extraocular movements are intact Neck supple, no JVD Chest: Clear to auscultation, no wheezes crackles rhonchi Heart: Regular rate rhythm, no murmur or gallop rub Abdomen is soft nontender no organomegaly Extremities no cyanosis clubbing or edema Neuro exam nonfocal. Coagulation Studies Laboratory Tests Test 12/23/24 05:18 Prothrombin Time 11.4 SECONDS (9.0-12.0) INR International Normalized Ratio 1.1 INR Activated Partial Thromboplast Time 27 SECONDS (22-32) Coagulation Comments Other Results Medications reviewed Problem\Assessment\Plan 74 years old female presented to the ER for evaluation of diarrhea x4 days. Patient has a history of C diff in the past in 2021 #C diff: Continue vancomycin. Patient reports improvement in her symptoms # UTI: Await final cultures. Avoid antibiotics because of her C diff # Paul/CKD : Creatinine trending down. Likely due to vasomotor nephropathy and dehydration. Continue monitor creatinine. Care and # bilateral numerous nonobstructing renal calculi: No acute issues. Continue monitor # post cholecystectomy CBD dilatation: CBD is dilated at 17 mm. Monitor LFTs. # hypothyroidism: Continue Levothyroxine # NIDDM Carb controlled diet, hyper/hypoglycemia protocl # Hyperlipidemia Continue Zocor # HTN continue lisinopril # GERD continue Prilosec # Depression Continue trazodone and citalopram #Code status DNR Date of Service: Dec 23, 2024 Billing Provider: EVELIA DEJESUS MD Common Visit Codes: [id number] INP/OBS CARE(HIGH) EVELIA DEJESUS MD Dec 23, 2024 11:38
[2024-12-23 18:00] VITALS: BP 137/70; PULSE 90; RESP 18; TEMP 98.4; O2SAT 95
[2024-12-23] MEDS: insulin glargine (Lantus) pen - multi-dose SQ SCH (20:30)
[2024-12-23 22:00] VITALS: BP 136/70; PULSE 89; RESP 14; TEMP 98; O2SAT 97
[2024-12-24 06:00] VITALS: BP 136/63; PULSE 84; RESP 14; TEMP 98.2; O2SAT 96
[2024-12-24 06:32] LABS: MEAN PLATELET VOLUME 7.2 FL (7.4-10.4); RED CELL DISTRIBUTION WIDTH 14.1 % (11.5-14.5)
[2024-12-24 06:41] LABS: CREATININE 1.23 MG/DL (0.40-0.90); PHOSPHORUS 2.2 MG/DL (2.3-4.5); TOTAL CARBON DIOXIDE 22.4 MMOL/L (24-32); eCRCL 31 ML/MIN; eGFR 43 ML/MIN
[2024-12-24 06:53] LABS: APTT 27 SECONDS (22-32); INR 1.1 INR
[2024-12-24 08:00] VITALS: RESP 14; O2SAT 96
[2024-12-24] MEDS: potassium Cl 20 mEq SR tablet PO PRN (09:16)
[2024-12-24 10:00] VITALS: BP 138/68; PULSE 101; RESP 16; TEMP 98.3; O2SAT 96
--- NOTE | 2024-12-24 16:43 | PROGRESS NOTE ---
Daily Progress Note Providers to CC ~ Antibiotic Timeout Antibiotic Ordered?: Yes Subjective Patient was seen in ortho unit she was eating her food but she mentioned because she does not have any teeth it is difficult for her to eat food. She wants to go home soon Objective Vital Signs Date Time Temp Pulse Resp B/P (MAP) Pulse Ox O2 Delivery O2 Flow Rate FiO2 12/24/24 10:00 98.3 101 16 138/68 (91) 96 Room Air 12/23/24 00:48 0 Result Diagram: 12/24/24 0612/24/24 06 General-patient not in any acute distress, alert awake oriented, chronically ill-appearing/age-appropriate, obese, looks comfortable HEENT-atraumatic normocephalic, neck supple without elevated JVD, no thyromegaly or carotid bruit. No lymphadenopathy bilaterally. Eyes-no icterus or pallor seen in eyes Chest-clear to auscultation bilaterally, breathing nonlabored no tachypnea, no wheezing, no crepitation, no crackles. Heart-S1-S2 normal, regular heart rate no murmur Abdomen bowel sounds positive on auscultation, soft nondistended nontender no guarding, no rigidity Skin no active skin rash Neurology-grossly intact, nonfocal alert awake oriented Extremity- no pedal edema able to move all 4 extremities Psychiatry - patient is not confused or agitated cooperated during physical examination Coagulation Studies Laboratory Tests Test 12/24/24 06:00 Prothrombin Time 11.1 SECONDS (9.0-12.0) INR International Normalized Ratio 1.1 INR Activated Partial Thromboplast Time 27 SECONDS (22-32) Coagulation Comments Problem\Assessment\Plan 74 years old female presented to the ER for evaluation of diarrhea x4 days. Patient has a history of C diff in the past in 2021 #C diff: Continue vancomycin. Patient reports improvement in her symptoms # UTI: Patient has asymptomatic bacteriuria will avoid antibiotics because of her C diff # Paul/CKD : Creatinine trending down. Likely due to vasomotor nephropathy and dehydration. Continue monitor creatinine. Care and # bilateral numerous nonobstructing renal calculi: No acute issues. Continue monitor # post cholecystectomy CBD dilatation: CBD is dilated at 17 mm. Monitor LFTs. # hypothyroidism: Continue Levothyroxine # NIDDM Carb controlled diet, hyper/hypoglycemia protocl # Hyperlipidemia Continue Zocor # HTN continue lisinopril # GERD continue Prilosec # Depression - on trazodone #Code status DNR Patient's current condition is guarded we will continue to monitor patient in a.m.. Patient needs physical therapy before her discharge in a.m. Date of Service: Dec 24, 2024 Billing Provider: DOMINGA FARR MD Common Visit Codes: [id number] INP/OBS CARE(HIGH) DOMINGA FARR MD Dec 24, 2024 16:43
[2024-12-24 18:00] VITALS: BP 130/66; PULSE 88; RESP 15; TEMP 98.6; O2SAT 96
[2024-12-24] MEDS: insulin glargine (Lantus) pen - multi-dose SQ SCH (20:56)
[2024-12-24 22:00] VITALS: BP 153/80; PULSE 84; RESP 14; TEMP 97.2; O2SAT 96
[2024-12-25 06:00] VITALS: BP 146/63; PULSE 88; RESP 15; TEMP 97.2; O2SAT 96
[2024-12-25 06:02] LABS: MEAN PLATELET VOLUME 7.2 FL (7.4-10.4); RED CELL DISTRIBUTION WIDTH 14.4 % (11.5-14.5)
[2024-12-25 06:09] LABS: APTT 26 SECONDS (22-32); INR 1.1 INR
[2024-12-25 06:24] LABS: CREATININE 1.14 MG/DL (0.40-0.90); PHOSPHORUS 1.9 MG/DL (2.3-4.5); TOTAL CARBON DIOXIDE 20.8 MMOL/L (24-32); eCRCL 34 ML/MIN; eGFR 46 ML/MIN
[2024-12-25 08:00] VITALS: RESP 15; O2SAT 96
[2024-12-25] MEDS: magnesium sulf-water 4G/100mL 100 ML IV PRN (09:47)
[2024-12-25 10:00] VITALS: BP 143/69; PULSE 95; RESP 18; TEMP 97.9; O2SAT 97
[2024-12-25] MEDS: magnesium sulf-water 2g/50mL 50 ML IV PRN (12:19)
[2024-12-25] MEDS ORDERED: VANC125C19 PO (13:10)
[2024-12-25] MEDS ORDERED: MAGN500C4 PO (13:15)
--- NOTE | 2024-12-25 19:21 | DISCHARGE SUMMARY ---
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 Serum chemistry done on December 25, 2024 sodium 144 potassium 3.6 creatinine 1.14 GFR 46 magnesium 2.1, procalcitonin 0.18, TSH 1.98, urine culture showing signs of E coli patient is asymptomatic for UTI symptoms. Blood culture showed no growth after two days. C diff testing pos itive CHEST,SINGLE VIEWIMPRESSION: 1. No acute cardiopulmonary abnormality. CT ABDOMEN PELVIS-Impression: No acute noncontrast CT abnormality in the abdomen or pelvis. 2 mm left-sided bladder stone. Numerous bilateral nonobstructing renal calculi. 17 mm common duct, dilated for post cholecystectomy state. Please correlate with laboratory values and pursue further workup if warranted. Terrence-en-Y gastric bypass surgery. Small hiatal hernia. Uterine fibroids. Mild sigmoid colon diverticulosis. Discharge Diagnosis\Comment: #acute C diff colitis : # UTI: Patient has asymptomatic bacteriuria # Paul/CKD Likely due to vasomotor nephropathy and dehydration. # bilateral numerous nonobstructing renal calculi: # post cholecystectomy CBD dilatation # hypothyroidism # NIDDM Carb controlled diet # Hyperlipidemia # HTN # GERD # Depression Operations\Procedures: None Consultants: None Complications: None Condition on DC: Stable New Medications: Vancomycin Hcl (Vancomycin Hcl) 125 Mg Capsule 1 CAP PO Q6H for 8 Days, #32 CAP Continued Medications: Citalopram Hydrobromide (Citalopram HBr) 40 Mg Tablet 1 TAB PO DAILY Clonazepam (Clonazepam) 0.5 Mg Tablet 1 TAB PO QID PRN for PRN Lactobacillus Rhamnosus (Culturelle) 1 Each Capsule 84252 MMU PO BKF, #30 CAP Levothyroxine Sodium (Levothyroxine Sodium) 125 Mcg Tablet 1 TAB PO DAILY Lisinopril (Lisinopril) 5 Mg Tablet 1 TAB PO DAILY Metformin HCl (Metformin HCl) 1,000 Mg Tablet 1 TAB PO BID Metoprolol Tartrate (Lopressor tablet) 25 Mg Tablet 12.5 MG PO BID, #60 TAB Hold for SBP below 100mm Hg Hold for Heart Rate below 60. Omeprazole (Prilosec) 40 Mg Capsule 1 CAP PO QAM Oxycodone HCl/Acetaminophen (Percocet 5-325 mg Tablet) 5 Mg-325 Mg Tablet 1 TAB PO Q12H PRN PRN for pain for 5 Days, #10 TAB 0 Refills Simvastatin* (Zocor*) 20 Mg Tablet 1 TAB PO DAILY Trazodone Hcl (Trazodone Hcl) 150 Mg Tablet 2 TAB PO HS Discontinued Medications: Vancomycin HCl (Vancomycin HCl) 5 Gm Vial 125 MG PO Q6H for 7 Days, #28 VIAL Discharge Summary: 74 years old female presented to the ER for evaluation of diarrhea x4 days. Patient has a history of C diff in the past in 2021 During hospitalization patient was treated for #C diff: Continue vancomycin. Patient reports improvement in her symptoms # UTI: Patient has asymptomatic bacteriuria will avoid antibiotics because of her C diff # Paul/CKD : Creatinine trending down. Likely due to vasomotor nephropathy and dehydration. Continue monitor creatinine. Care and # bilateral numerous nonobstructing renal calculi: No acute issues. Continue monitor # post cholecystectomy CBD dilatation: CBD is dilated at 17 mm. Monitor LFTs. # hypothyroidism: Continue Levothyroxine # NIDDM Carb controlled diet, hyper/hypoglycemia protocl # Hyperlipidemia Continue Zocor # HTN continue lisinopril # GERD continue Prilosec # Depression - on trazodone #Code status DNR Patient is feeling better she has been afebrile and getting discharged home in stable condition. Patient is seen and examined on the day of discharge. All labs, diagnostic workup and discharge plan discussed with patient and family members in detail before her discharge. All questions and queries answered to the best of my professional medical knowledge. I heard patient's concerns and address appropriately. Patient was cleared by Physical therapy team for home discharge . health practice manager involved in patient's discharge plan. Discharge instructions provided to the patient . Please follow-up with primary care physician in one week after hospital discharge. Repeat CBC , magnesium, sed rate procalcitonin and BMP in five days with PCP in outpatient setting. Read side effects of all your medication and discuss with PCP or specialist provider. Activity as tolerated. Please provide fall precautions document to the patient. General-patient not in any acute distress, alert awake oriented, chronically ill-appearing/age-appropriate, obese, looks comfortable HEENT-atraumatic normocephalic, neck supple without elevated JVD, no thyromegaly or carotid bruit. No lymphadenopathy bilaterally. Eyes-no icterus or pallor seen in eyes Chest-clear to auscultation bilaterally, breathing nonlabored no tachypnea, no wheezing, no crepitation, no crackles. Heart-S1-S2 normal, regular heart rate no murmur Abdomen bowel sounds positive on auscultation, soft nondistended nontender no guarding, no rigidity Skin no active skin rash Neurology-grossly intact, nonfocal alert awake oriented Extremity- no pedal edema able to move all 4 extremities Psychiatry - patient is not confused or agitated cooperated during physical examination *Problems/Diagnosis: (1) C. difficile diarrhea Status: Acute Total Time Spent on D/C: > 30 Minutes Date of Service: Dec 25, 2024 Billing Provider: DOMINGA FARR MD Common Visit Codes: [id number]/OBS DISCH DAY >30min DOMINGA FARR MD Dec 25, 2024 19:19
== END 2024-12-25 17:00 | disposition home health service (06) | DRG 371 ==
LOC: ER 12:46 → ED HOLD 21:08 → EDBEDREQ 12-23 00:39 → ORTHO 4S 12-23 01:05
PROVIDERS: ADMIT Internal Medicine; ATTEND Internal Medicine
DX: A04.72 Enterocolitis due to Clostridium difficile, not specified as recurrent (principal); N17.0 Acute kidney failure with tubular necrosis; N39.0 Urinary tract infection, site not specified; I12.9 Hypertensive chronic kidney disease with stage 1 through stage 4 chronic kidney disease, or unspecified chronic kidney disease; Z66 Do not resuscitate; K21.9 Gastro-esophageal reflux disease without esophagitis; N18.9 Chronic kidney disease, unspecified; E03.9 Hypothyroidism, unspecified; E11.22 Type 2 diabetes mellitus with diabetic chronic kidney disease; F32.A Depression, unspecified; E86.0 Dehydration; K83.8 Other specified diseases of biliary tract; E78.5 Hyperlipidemia, unspecified; N20.0 Calculus of kidney; Z88.8 Allergy status to other drugs, medicaments and biological substances; Z79.899 Other long term (current) drug therapy; Z79.84 Long term (current) use of oral hypoglycemic drugs
CPT/HCPCS: 36415; 71045; 74176; 80048; 80053; 80061; 81001; 82948; 83036; 83605; 83735; 84100; 84145; 84443; 85025; 85610; 85730; 87040; 87077; 87081; 87088; 87186; 87324; 87449; 93005; 96360; 97116; 97161; 99285; A6250; G0378; J1644; J1815; J3475; J7030